=== PATIENT | male | born 1935 | race Two or more races ===

== ENCOUNTER 2019-05-19 08:31 | Day surgery (SDC) | payer MEDICARE ==
--- NOTE | 2019-05-07 10:20 | EKG REPORT ---
SEVERITY:- ABNORMAL ECG - SINUS RHYTHM VENTRICULAR PREMATURE COMPLEX RBBB AND LAFB : Confirmed by: Ora Montiel MD 07-May-2019 10:20:12
[2019-05-07 10:21] LABS: HEMOGLOBIN 14.1 g/dL (13.5-17.0); MEAN CORPUSCULAR HEMOGLOBIN 29.8 pg (27.0-33.4); MEAN CORPUSCULAR HGB CONC 33.4 g/dL (32.0-36.0); MEAN CORPUSCULAR VOLUME 89 fl (80-97); PLATELET COUNT 171 10^3/uL (150-450); RED BLOOD COUNT 4.71 10^6/uL (4.35-5.55); RED CELL DISTRIBUTION WIDTH 15.1 % (11.5-14.0); WHITE BLOOD COUNT 5.3 10^3/uL (4.0-10.5)
[2019-05-07 10:24] LABS: INTERNATIONAL RATION (INR) 0.94; PARTIAL THROMBOPLASTIN TIME 31.1 SEC (23.5-35.8)
[2019-05-07 10:43] LABS: BLOOD UREA NITROGEN 15 mg/dL (7-20); CALCIUM 10.1 mg/dL (8.4-10.2); CARBON DIOXIDE 29 mmol/L (22-30); GLUCOSE 113 mg/dL (75-110); POTASSIUM 4.7 mmol/L (3.6-5.0); SODIUM 140.7 mmol/L (137-145)
[2019-05-07 10:45] LABS: ANION GAP 8 (5-19); CHLORIDE 104 mmol/L (98-107)
[~2019-05-19 08:31] MED LIST: CEFAZOLIN 1 GM/D5W RTU 1 GM/50 ML RTUPB IV ONE; CEFAZOLIN 1 GM/D5W RTU 1 GM/50 ML RTUPB IV PRN; LACTATED RINGERS 1000 ML IV PRN; LIDOCAINE 0.5% INJ-PF (5 MG/ML) 50 ML SDV SUBCUT PRN; LIDOCAINE 1%/EPINEPHRINE INJ 20 ML VIAL ONE; POVIDONE-IODINE 5% OPH PREP SOLN 30 ML ONE; SODIUM BICARBONATE 8.4% INJ 50 MEQ/50 ML DISP.SYRIN ONE
[2019-05-19 09:27] LABS: POTASSIUM 4.2 mmol/L (3.6-5.0)
[2019-05-19] MEDS ORDERED: LIDOCAINE 1% INJ-PF (10 MG/ML) 30 ML SDV ONE (09:48)
[2019-05-19] MEDS ORDERED: ONDANSETRON HCL INJ/PF 4 MG/2 ML SDV ONE (09:50)
[2019-05-19] MEDS ORDERED: MIDAZOLAM 2 MG/2 ML INJ ONE (09:50)
[2019-05-19] MEDS ORDERED: FENTANYL CITRATE INJ/PF 100 MCG/2 ML AMPUL ONE (09:50)
[2019-05-19] MEDS ORDERED: PROPOFOL INJ 200 MG/20 ML VIAL IV ONE (09:51)
[2019-05-19] MEDS ORDERED: DIPHENHYDRAMINE HCL 50 MG/ML VIAL IV PRN (10:56)
[2019-05-19] MEDS ORDERED: FENTANYL CITRATE INJ/PF 100 MCG/2 ML AMPUL IV PRN ×3 (10:56)
--- NOTE | 2019-05-19 11:51 | Operative Report ---
Operative Report DATE OF SURGERY: 05/19/19 PREOPERATIVE DIAGNOSIS: Basal cell carcinoma of the right posterior hairline POSTOPERATIVE DIAGNOSIS: Same OPERATION: Excision of basal cell carcinoma from the right posterior hairline with frozen section margin control and reconstruction with a O to S Plasty flap reconstruction SURGEON: NAYA WONG ANESTHESIA: LMAC TISSUE REMOVED OR ALTERED: Basal cell carcinoma COMPLICATIONS: None ESTIMATED BLOOD LOSS: Minimal PROCEDURE: Patient seen and was marked prior to being brought into the operating room. Patient was brought into the operating room and placed on the operating room table in a sloppy lateral position. Patient was then prepped with a chlorhexidine sterile prep and draped in a sterile and aseptic manner. The area was then marked. 12 O'clock was marked towards the posterior scalp 3 O'clock was marked towards the right neck 6:00 was marked towards the back 9:00 was marked towards the left neck The area was then anesthetized with 1% lidocaine with epinephrine and bicarbonate for its anesthetic and hemostatic effects. The area was then excised and marked at 12:00. The specimen was sent for frozen section. The results came back that the deep and lateral margins were free. We had considered a primary closure but this would go against the natural relaxed skin tension lines. A primary closure would be too tight and would have increased chance of dehiscence. This will leave more of a scar so we decided to use a O to S flap reconstruction which would camouflage the scar better and take tension off of the closure so that would be less chances of complications. It was felt that this flap would be the best and distort the hairline the least and allow us to use the tissue with the least amount of tension for the reconstruction. Again any direct closure would have been too tight and what had a direct pull, but by using this flap will distribute the forces and protect the reconstruction. Then we went ahead and outlined the flap and anesthetized it. We then incised the flap and developed a flap maintaining the subdermal plexus. Then we undermined 360 to allow for plate like scarring and minimize trap door deformity. Throughout the case hemostasis was achieved with the bipolar. We then sutured the flap into its new position using 3-0 Vicryl for the subcutaneous and deep dermis. Skin was closed with a running subcuticular suture stitch using 3-0 PDS with knots being tied on the outside. And 3-0 PDS suture was used for support and placed in the central area of the incision. We then applied Dermabond followed by a light pressure dressing. Patient was then reversed from anesthesia and taken to the [facility] for recovery. The patient tolerated well. There were no complications. Lesion size was approximately 2 cm please see pathology for actual size. Portions of this note may be dictated using [employer] voice recognition software. Occasional variations and spelling and vocabulary could be possible and are unintentional. Additionally, there is a chance that some errors may not be caught or corrected. Please notify the author of any discrepancies noted or if any statements are unclear Subjective: No complaints Objective: Vital signs stable afebrile No bleeding Dressing intact Assessment and plan: Doing well. Elevate the operative site. Resume medications. Take antibiotics for 1 day Follow-up Full instructions were given to the patient and family and they understand Portions of this note may be dictated using [employer] voice recognition software. Occasional variations and spelling and vocabulary could be possible and are unintentional. Additionally, there is a chance that some errors may not be caught or corrected. Please notify the offer of any discrepancies noted or if any statements are unclear. .
--- NOTE | 2019-05-19 11:54 | Discharge Summary ---
Discharge Summary (SDC) - Discharge Final Diagnosis: Basal cell carcinoma of the right posterior hairline Date of Surgery: 05/19/19 Condition: Good Treatment or Instructions: Antibiotics for 1 day, then discontinue. Elevate operative area to decrease swelling. Do not strain, or lift heavy objects. Call for excessive bleeding, increased temperature of 101, uncontrolled pain, or excessive nausea or vomiting. You may reach Dr. Fields through his office at [phone]. In the event of an emergency after hours, then contact Dr. Fields through [facility]. Return to the office for a postop check on . The time will be scheduled by the nursing staff of [facility] prior to discharge. Please give the patient a copy of their labs and EKG so they can bring this to their PMD. Thank you Portions of this note may be dictated using [employer] voice recognition software. Occasional variations and spelling and vocabulary could be possible and are unintentional. Additionally, there is a chance that some errors may not be caught or corrected. Please notify the offer of any discrepancies noted or if any statements are unclear. Referrals: SCARLETT HUFF PA [Primary Care Provider] - Discharge Diet: As Tolerated Discharge Activity: No Lifting/Push/Pulling Report the Following to Your Physician Immediately: Unusual Bleeding - Do not flex the neck. Keep head elevated. Take the top dressing off in 2 days. Clean the glue with peroxide twice a day. Cover with a clean gauze dressing.
[2019-05-19 13:27] VITALS: BP 152/65
[2019-05-19] MEDS ORDERED: KETAMINE HCL INJ 500 MG/10 ML VIAL ONE (13:50)
== END 2019-05-19 13:00 | disposition home or self-care (01) ==
LOC: OROUT 08:31
PROVIDERS: ATTEND Plastic Surgery
DX: C44.41 Basal cell carcinoma of skin of scalp and neck (principal); I25.2 Old myocardial infarction; J45.909 Unspecified asthma, uncomplicated; L85.8 Other specified epidermal thickening; R06.02 Shortness of breath; E66.9 Obesity, unspecified; Z79.82 Long term (current) use of aspirin; Z79.84 Long term (current) use of oral hypoglycemic drugs; Z79.899 Other long term (current) drug therapy; Z85.038 Personal history of other malignant neoplasm of large intestine; Z68.41 Body mass index [BMI] 40.0-44.9, adult; Z91.041 Radiographic dye allergy status; Z79.01 Long term (current) use of anticoagulants
CPT/HCPCS: 93005; 36415 ×2; 82947; 84132; 85027; 85610; 85730; 80048; 88305 ×2; 88331 ×2; 93010; 00300; 14020; J2250; J0690; J3010; J3490 ×3; J2405; J2704; 300

== ENCOUNTER 2019-09-08 08:15 | Day surgery (SDC) | payer MEDICARE ==
[~2019-09-08 08:15] MED LIST changes: -CEFAZOLIN 1 GM/D5W RTU 1 GM/50 ML RTUPB IV ONE; -CEFAZOLIN 1 GM/D5W RTU 1 GM/50 ML RTUPB IV PRN; +DOXYCYCLINE HYCLATE 100 MG in DEXTROSE 5%-WATER 250 ML IV PRN; -LACTATED RINGERS 1000 ML IV PRN; -LIDOCAINE 0.5% INJ-PF (5 MG/ML) 50 ML SDV SUBCUT PRN; +SODIUM BICARBONATE 4.2% INJ (2.5 MEQ/5 ML) VIAL ONE; -SODIUM BICARBONATE 8.4% INJ 50 MEQ/50 ML DISP.SYRIN ONE
[2019-09-08 08:43] LABS: HEMATOCRIT 45.5 % (37.9-51.0); HEMOGLOBIN 15.1 g/dL (13.5-17.0); MEAN CORPUSCULAR HEMOGLOBIN 31.2 pg (27.0-33.4); MEAN CORPUSCULAR HGB CONC 33.2 g/dL (32.0-36.0); MEAN CORPUSCULAR VOLUME 94 fl (80-97); PLATELET COUNT 167 10^3/uL (150-450); RED BLOOD COUNT 4.84 10^6/uL (4.35-5.55); RED CELL DISTRIBUTION WIDTH 14.2 % (11.5-14.0); WHITE BLOOD COUNT 5.1 10^3/uL (4.0-10.5)
[2019-09-08] MEDS ORDERED: LIDOCAINE 1% INJ-PF (10 MG/ML) 30 ML SDV ONE (08:44)
[2019-09-08] MEDS ORDERED: MIDAZOLAM 2 MG/2 ML INJ ONE (09:05)
[2019-09-08] MEDS ORDERED: PROPOFOL INJ 200 MG/20 ML VIAL IV ONE (09:05)
[2019-09-08 09:06] LABS: ANION GAP 7 (5-19); BLOOD UREA NITROGEN 21 mg/dL (7-20); CALCIUM 9.5 mg/dL (8.4-10.2); CARBON DIOXIDE 26 mmol/L (22-30); CHLORIDE 106 mmol/L (98-107); GLUCOSE 122 mg/dL (75-110); POTASSIUM 4.6 mmol/L (3.6-5.0)
[2019-09-08 09:18] LABS: INTERNATIONAL RATION (INR) 0.96; PROTHROMBIN TIME 12.8 SEC (11.4-15.4)
[2019-09-08 09:22] LABS: PARTIAL THROMBOPLASTIN TIME 30.1 SEC (23.5-35.8)
--- NOTE | 2019-09-08 09:26 | EKG REPORT ---
SEVERITY:- ABNORMAL ECG - SINUS RHYTHM VENTRICULAR PREMATURE COMPLEX RBBB AND LAFB : Confirmed by: Ora Montiel MD 08-Sep-2019 09:26:27
[2019-09-08] MEDS ORDERED: FENTANYL CITRATE INJ/PF 100 MCG/2 ML AMPUL ONE (10:19)
[2019-09-08] MEDS ORDERED: ONDANSETRON HCL INJ/PF 4 MG/2 ML SDV IV PRN (10:25)
[2019-09-08] MEDS ORDERED: FENTANYL CITRATE INJ/PF 100 MCG/2 ML AMPUL IV PRN ×3 (10:25)
[2019-09-08] MEDS ORDERED: DIPHENHYDRAMINE HCL 50 MG/ML VIAL IV PRN (10:25)
[2019-09-08] MEDS ORDERED: PROMETHAZINE HCL INJ 25 MG/1 ML VIAL IV PRN ×2 (10:25)
[2019-09-08] MEDS ORDERED: MORPHINE SULFATE 10 MG/ML INJ IV PRN (10:25)
[2019-09-08] MEDS ORDERED: MEPERIDINE HCL/PF INJ 25 MG/1 ML DISP.SYRIN IV PRN (10:25)
[2019-09-08] MEDS ORDERED: OXYCODONE-ACETAMINOPHEN 5-325 MG TABLET PO PRN ×2 (10:25)
--- NOTE | 2019-09-08 11:18 | Operative Report ---
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 Patient was brought into the operating room and placed on the operating room table in a supine position. Patient was then prepped with a Betadine scrub and Betadine solution and draped in a sterile and aseptic manner. The area was then marked. 12 O'clock was marked towards the left brow 3 O'clock was marked towards the right lateral brow 6:00 was marked towards the ear 9:00 was marked towards the posterior scalp The area was then anesthetized with 1% lidocaine with bicarbonate for its anesthetic and hemostatic effects. The area was then excised and marked at 12:00. The specimen was sent for frozen section. The results came back that the deep and lateral margins were free. We had considered a primary closure but this would go against the natural relaxed skin tension lines. A primary closure would be too tight and would have increased chance of dehiscence. This will leave more of a scar so we decided to use a boomerang sliding advancement flap reconstruction which would camouflage the scar better and take tension off of the closure so that would be less chances of complications. This flap would allow us to do some mobilization of this tight thick adherent scalp in order to be able to slide the flaps together for the reconstruction. It was almost as of the skin was plastered down to the cranium which made it very difficult for any other options for the reconstruction. And into this is the fact that only plain lidocaine was able to be used as per the recommendation of his doctor which led to more bleeding and basal dilatation and a very vascular area. Then we went ahead and outlined the flap and anesthetized it. We then incised the flap and developed a flap maintaining the subdermal plexus. Then we undermined 360 to allow for plate like scarring and minimize trap door deformity. Throughout the case hemostasis was achieved with the bipolar. Throughout the case there was a fair amount of bleeding from all areas that were dissected due to the use of plain lidocaine without epinephrine. This made it very difficult for the reconstruction but finally after considerable amount of time spent on the hemostasis we had good dry flaps ready for closure. Attempts were made to try to place subcutaneous and deep dermal sutures but it was just too tight and there was not enough mobility. We had to end up just using a skin closure reapproximating the flaps. We used interrupted simple 2-0 Prolene sutures for anchoring the flaps into place. We then applied tincture benzoin and Steri-Strips followed by a light pressure dressing. Patient was then reversed from anesthesia and taken to the [facility] for recovery. The patient tolerated well. There were no complications. Lesion size was approximately 2.3 cm please see pathology for actual size. Portions of this note may be dictated using [employer] voice recognition software. Occasional variations and spelling and vocabulary could be possible and are unintentional. Additionally, there is a chance that some errors may not be caught or corrected. Please notify the author of any discrepancies noted or if any statements are unclear. Subjective: No complaints Objective: Vital signs stable afebrile No bleeding Dressing intact Assessment and plan: Doing well. Elevate the operative site. Resume medications. Take antibiotics for 1 day Follow-up Full instructions were given to the patient and family and they understand Portions of this note may be dictated using [employer] voice recognition software. Occasional variations and spelling and vocabulary could be possible and are unintentional. Additionally, there is a chance that some errors may not be caught or corrected. Please notify the offer of any discrepancies noted or if any statements are unclear.
--- NOTE | 2019-09-08 11:19 | Discharge Summary ---
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 Leave the steri-strip tapes on for 5 days, then removal. Then cleaning wound with peroxide and apply Neosporin/bacitracin 3 times per day. Antibiotics for 1 day, then discontinue. Elevate operative area to decrease swelling. Do not strain, or lift heavy objects. Call for excessive bleeding, increased temperature of 101, uncontrolled pain, or excessive nausea or vomiting. You may reach Dr. Fields through his office at [phone]. In the event of an emergency after hours, then contact Dr. Fileds through [facility]. Return to the office for a postop check on . The time will be scheduled by the nursing staff of [facility] prior to discharge. Please give the patient a copy of their labs and EKG so they can bring this to their PMD. Thank you Portions of this note may be dictated using [employer] voice recognition software. Occasional variations and spelling and vocabulary could be possible and are unintentional. Additionally, there is a chance that some errors may not be caught or corrected. Please notify the offer of any discrepancies noted or if any statements are unclear. Referrals: SCARLETT HUFF PA [Primary Care Provider] - Discharge Diet: As Tolerated Discharge Activity: No Lifting/Push/Pulling Report the Following to Your Physician Immediately: Unusual Bleeding - Keep head elevated. No bending or straining.
[2019-09-08 16:55] VITALS: BP 145/69
== END 2019-09-08 13:20 | disposition home or self-care (01) ==
LOC: OROUT 08:15
PROVIDERS: ATTEND Plastic Surgery
DX: C44.329 Squamous cell carcinoma of skin of other parts of face (principal); G47.33 Obstructive sleep apnea (adult) (pediatric); I25.2 Old myocardial infarction; E66.01 Morbid (severe) obesity due to excess calories; Z85.038 Personal history of other malignant neoplasm of large intestine; Z79.01 Long term (current) use of anticoagulants; Z79.899 Other long term (current) drug therapy; Z79.84 Long term (current) use of oral hypoglycemic drugs
CPT/HCPCS: 36415; 85027; 85610; 85730; 80048; 88305 ×2; 88331 ×2; 93005; 93010; 00300; 14040; J2250; J3490 ×4; J3010; J7060; J2704; 300

== ENCOUNTER 2019-12-01 05:34 | Day surgery (SDC) | payer MEDICARE ==
[~2019-12-01 05:34] MED LIST changes: -LIDOCAINE 1%/EPINEPHRINE INJ 20 ML VIAL ONE; -POVIDONE-IODINE 5% OPH PREP SOLN 30 ML ONE; -SODIUM BICARBONATE 4.2% INJ (2.5 MEQ/5 ML) VIAL ONE
[2019-12-01] MEDS ORDERED: MORPHINE SULFATE 10 MG/ML INJ ONE (06:36)
[2019-12-01] MEDS ORDERED: PROPOFOL INJ 200 MG/20 ML VIAL IV ONE (06:36)
[2019-12-01] MEDS ORDERED: MIDAZOLAM 2 MG/2 ML INJ ONE (06:36)
[2019-12-01 06:43] LABS: POTASSIUM 4.3 mmol/L (3.6-5.0)
[2019-12-01] MEDS ORDERED: SODIUM BICARBONATE 4.2% INJ (2.5 MEQ/5 ML) VIAL ONE (07:13)
[2019-12-01] MEDS ORDERED: LIDOCAINE 1%/EPINEPHRINE INJ 20 ML VIAL ONE (07:13)
[2019-12-01] MEDS ORDERED: LIDOCAINE 1% INJ-PF (10 MG/ML) 30 ML SDV ONE (07:41)
[2019-12-01] MEDS ORDERED: MEPERIDINE HCL/PF INJ 25 MG/1 ML DISP.SYRIN IV PRN (07:58)
[2019-12-01] MEDS ORDERED: DIPHENHYDRAMINE HCL 50 MG/ML VIAL IV PRN (07:58)
[2019-12-01] MEDS ORDERED: PROMETHAZINE HCL INJ 25 MG/1 ML VIAL IV PRN (07:58)
[2019-12-01] MEDS ORDERED: FENTANYL CITRATE INJ/PF 100 MCG/2 ML AMPUL IV PRN ×3 (07:58)
--- NOTE | 2019-12-01 09:09 | Operative Report ---
Operative Report DATE OF SURGERY: 12/01/19 PREOPERATIVE DIAGNOSIS: Basal cell carcinoma from the left angle of the mandible with positive deep and lateral margins POSTOPERATIVE DIAGNOSIS: Same OPERATION: Excision of basal cell carcinoma from the left angle of the mandible with frozen section margin control and reconstruction with a boomerang sliding advancement flap SURGEON: NAYA WONG ANESTHESIA: LMAC TISSUE REMOVED OR ALTERED: Basal cell carcinoma COMPLICATIONS: None ESTIMATED BLOOD LOSS: 5 cc PROCEDURE: Patient seen and was marked prior to being brought into the operating room. Patient was brought into the operating room and placed on the operating room table in a supine position. Patient was then prepped with a Betadine scrub and Betadine solution and draped in a sterile and aseptic manner. The area was then marked. 12 O'clock was marked towards the corner of the mouth 3 O'clock was marked towards the sideburn 6:00 was marked towards the posterior lateral neck 9:00 was marked towards the sternal notch The area was then anesthetized with 1% lidocaine with epinephrine and bicarbonate for its anesthetic and hemostatic effects. The area was then excised and marked at 12:00. The specimen was sent for frozen section. The results came back that the deep and lateral margins were free. We had considered a primary closure but this would go against the natural relaxed skin tension lines. A primary closure would be too tight and would have increased chance of dehiscence. This will leave more of a scar so we decided to use a boomerang sliding advancement flap reconstruction which would camouflage the scar better and take tension off of the closure so that would be less chances of complications. It was decided that by using this flap this would allow us to stay within the natural relaxed skin tension lines and distort the anatomy the least amount. T he flap would need to be altered because of the direction of the resection and the asymmetry of the resection. Then we went ahead and outlined the flap and anesthetized it. We then incised the flap and developed a flap maintaining the subdermal plexus. Then we undermined 360 to allow for plate like scarring and minimize trap door deformity. Throughout the case hemostasis was achieved with the bipolar. We then sutured the flap into its new position using 4-0 Vicryl for the subcutaneous and deep dermis. Skin was closed with a running subcuticular suture stitch using 4-0 PDS with knots being tied on the outside. And 4-0 PDS suture was used for support and placed in the central area of the incision. We then applied Dermabond followed by a light pressure dressing. Patient was then reversed from anesthesia and taken to the [facility] for recovery. The patient tolerated well. There were no complications. Lesion size was approximately 2 cm please see pathology for actual size. Portions of this note may be dictated using [employer] voice recognition software. Occasional variations and spelling and vocabulary could be possible and are unintentional. Additionally, there is a chance that some errors may not be caught or corrected. Please notify the author of any discrepancies noted or if any statements are unclear. Subjective: No complaints Objective: Vital signs stable afebrile No bleeding Dressing intact Assessment and plan: Doing well. Elevate the operative site. Resume medications. Take antibiotics for 1 day Follow-up Full instructions were given to the patient and family and they understand Portions of this note may be dictated using [employer] voice recognition software. Occasional variations and spelling and vocabulary could be possible and are unintentional. Additionally, there is a chance that some errors may not be caught or corrected. Please notify the offer of any discrepancies noted or if any statements are unclear.
--- NOTE | 2019-12-01 09:10 | Discharge Summary ---
Discharge Summary (SDC) - Discharge Final Diagnosis: Basal cell carcinoma of the left angle of the mandible Date of Surgery: 12/01/19 Condition: Good Treatment or Instructions: Antibiotics for 1 day, then discontinue. Elevate operative area to decrease swelling. Do not strain, or lift heavy objects. Call for excessive bleeding, increased temperature of 101, uncontrolled pain, or excessive nausea or vomiting. You may reach Dr. Fields through his office at [phone]. In the event of an emergency after hours, then contact Dr. Fields through [facility]. Return to the office for a postop check on . The time will be scheduled by the nursing staff of [facility] prior to discharge. Please give the patient a copy of their labs and EKG so they can bring this to their PMD. Thank you Portions of this note may be dictated using [employer] voice recognition software. Occasional variations and spelling and vocabulary could be possible and are unintentional. Additionally, there is a chance that some errors may not be caught or corrected. Please notify the offer of any discrepancies noted or if any statements are unclear. Referrals: SCARLETT HUFF PA [Primary Care Provider] - Discharge Diet: As Tolerated Discharge Activity: No Lifting/Push/Pulling Report the Following to Your Physician Immediately: Unusual Bleeding - Keep head elevated. No bending or straining.
[2019-12-01 10:49] VITALS: BP 150/64
== END 2019-12-01 10:40 | disposition home or self-care (01) ==
LOC: OROUT 05:34
PROVIDERS: ATTEND Plastic Surgery
DX: C44.319 Basal cell carcinoma of skin of other parts of face (principal); J45.909 Unspecified asthma, uncomplicated; I25.2 Old myocardial infarction; L57.0 Actinic keratosis; L57.8 Other skin changes due to chronic exposure to nonionizing radiation; G47.33 Obstructive sleep apnea (adult) (pediatric); E66.01 Morbid (severe) obesity due to excess calories; Z85.038 Personal history of other malignant neoplasm of large intestine; Z85.828 Personal history of other malignant neoplasm of skin; Z79.899 Other long term (current) drug therapy; Z79.82 Long term (current) use of aspirin; Z79.84 Long term (current) use of oral hypoglycemic drugs
CPT/HCPCS: 36415; 82947; 84132; 88305 ×2; 88331 ×2; 00300; 14040; J2250; J3490 ×4; J7060; J2704; 300; J2270